=== PATIENT | female | born 1990 ===

== ENCOUNTER 2023-02-11 15:03 | Outpatient (CLI) | payer OTHER | END 2023-02-11 17:29 | disposition home or self-care (01) | LOC: PRENATAL 15:03 | PROVIDERS: ATTEND Obstetrics & Gynecology Maternal & Fetal Medicine | DX: O36.80X0 Pregnancy with inconclusive fetal viability, not applicable or unspecified (principal); O34.219 Maternal care for unspecified type scar from previous cesarean delivery; Z36.9 Encounter for antenatal screening, unspecified; Z3A.12 12 weeks gestation of pregnancy ==

== ENCOUNTER → 2023-06-24 14:09 | Outpatient (CLI) | payer OTHER | END | disposition home or self-care (01) | LOC: PRENATAL 14:09 | PROVIDERS: ATTEND Obstetrics & Gynecology Maternal & Fetal Medicine | DX: O26.849 Uterine size-date discrepancy, unspecified trimester (principal); O36.8199 Decreased fetal movements, unspecified trimester, other fetus; O34.219 Maternal care for unspecified type scar from previous cesarean delivery; Z3A.31 31 weeks gestation of pregnancy ==

== ENCOUNTER 2023-08-12 07:30 | Inpatient (IN) | payer OTHER ==
[~2023-08-12] VITALS: Ht 160 cm; Wt 3.2 kg
[2023-08-12] MEDS ORDERED: PRENATABS FA T1 EACH PO (08:33)
[2023-08-12] MEDS ORDERED: PROBIOTIC1 EACH PO (08:34)
[2023-08-12 09:58] LABS: URINE APPEARANCE Clear; URINE BILIRRUBIN Negative (NEGATIVE); URINE BLOOD Negative; URINE COLOR Yellow; URINE GLUCOSE Negative (NEGATIVE); URINE LEUKOCYTE Negative; URINE NITRATE Negative; URINE PROTEIN Negative (NEGATIVE); URINE UROBILINOGEN 0.2 E.U./dl
[2023-08-12 10:01] LABS: URINE BACTERIA 157.3 uL (0.0-1933); URINE EPITHELIAL CELLS 11.4 uL (0.0-38.8); URINE WBC 2.7 uL (0.0-23.2)
[2023-08-12 10:08] LABS: HEMATOCRIT 34.9 % (36.0-45.00); MEAN CELL VOLUME 93.5 fL (80.00-100.00); MEAN CORPUSCULAR HEMOGLOBIN 32.2 pg (27.00-32.0); MEAN CORPUSCULAR HGB CONC 34.4 g/dl (32.0-36.0); PLATELET COUNT 176 K/uL (150-450); RED BLOOD COUNT 3.74 M/uL (4.00-6.00); RED CELL DISTRIBUTION WIDTH 12.7 % (11.5-14.5)
[2023-08-12 10:26] LABS: URINE RBC 1.2 uL (0.0-20.8)
[2023-08-12 10:42] LABS: INR < 0.93; PARTIAL THROMBOPLASTIN TIME 31.3 SECONDS (22.0-34.0); PROTHROMBIN TIME 9.8 SECONDS (9.0-11.5)
[2023-08-12 10:48] LABS: BILIRUBIN TOTAL 0.24 mg/dL (0.3-1.2); CALCIUM 9.1 mg/dL (8.5-10.1); CREATININE SERUM 0.5 mg/dL (0.55-1.02); GFR 141.23; GLOBULINA 3.7 G/DL (2.4-3.5); POTASSIUM 4.55 mEq/L (3.5-5.1); TOTAL PROTEIN 6.7 gm/dL (6.4-8.2)
[2023-08-19] MEDS ORDERED: CEFAZOLIN SODIUM 1,000 MG VIAL ONE (07:18)
[2023-08-19] MEDS ORDERED: ERYTHROMYCIN BASE 1 GM TUBE OP ONE ×2 (07:19→09:45)
[2023-08-19] MEDS ORDERED: OXYTOCIN 10 UNITS/ML VIAL ONE (07:19)
[2023-08-19] MEDS ORDERED: MEPERIDINE HCL/PF 50 MG/ML VIAL IM PRN (09:15)
[2023-08-19] MEDS ORDERED: PROMETHAZINE HCL 50 MG/ML AMPUL IM PRN (09:15)
[2023-08-19] MEDS ORDERED: OXYTOCIN 10 UNITS/ML VIAL IV SCH (09:45)
[2023-08-19] MEDS ORDERED: CEFAZOLIN SODIUM 1,000 MG VIAL IV ONE (09:45)
[2023-08-19] MEDS ORDERED: KETOROLAC TROMETHAMINE 30 MG VIAL IV SCH (14:00)
[2023-08-20] MEDS ORDERED: OxyCODONE HCL/APAP UD (PERCOCET) PO PRN (08:00)
[2023-08-20 08:48] LABS: HEMATOCRIT 28.3 % (36.0-45.00); HEMOGLOBIN 9.8 g/dL (12.0-15.00); MEAN CELL VOLUME 93.9 fL (80.00-100.00); MEAN CORPUSCULAR HEMOGLOBIN 32.5 pg (27.00-32.0); MEAN CORPUSCULAR HGB CONC 34.6 g/dl (32.0-36.0); PLATELET COUNT 147 K/uL (150-450); RED BLOOD COUNT 3.01 M/uL (4.00-6.00); RED CELL DISTRIBUTION WIDTH 13.3 % (11.5-14.5)
[2023-08-20] MEDS ORDERED: PNV,CALCIUM 72/IRON/FOLIC ACID 1 TAB TABLET PO SCH (09:00)
[2023-08-20] MEDS ORDERED: SIMETHICONE 125 MG CAPSULE PO SCH (09:00)
[2023-08-20] MEDS ORDERED: DOCUSATE SODIUM 100MG CAP PO SCH (09:00)
[2023-08-20] MEDS ORDERED: IBUprofen 800 MG TABLET PO SCH (18:00)
[2023-08-21] MEDS ORDERED: MINERAL OIL 30 ML BLIST.PACK PO ONE (19:45)
[2023-08-21] MEDS ORDERED: BISACODYL 10 MG/SUPP.RECT SUPP.RECT RECTAL ONE (19:45)
[2023-08-21] MEDS ORDERED: MAGNESIUM HYDROXIDE 30 ML BLIST.PACK PO ONE (19:45)
== END 2023-08-22 14:22 | disposition home or self-care (01) | DRG 788 ==
LOC: OB/GYN 08-19 05:55 → O/R 08-19 05:55 → OB/GYN 08-19 07:00
PROVIDERS: ADMIT Obstetrics & Gynecology; ATTEND Obstetrics & Gynecology
PROC: 4A1HXCZ Monitoring of Products of Conception, Cardiac Rate, External Approach (ICD-10-PCS; 2023-08-19)
PROC: 10D00Z1 Extraction of Products of Conception, Low, Open Approach (ICD-10-PCS; principal; 2023-08-19 07:00)
DX: O34.211 Maternal care for low transverse scar from previous cesarean delivery (principal); Z3A.39 39 weeks gestation of pregnancy; Z37.0 Single live birth; Z20.822 Contact with and (suspected) exposure to COVID-19